=== PATIENT | female | born 1985 | race Caucasian/White ===

== ENCOUNTER 2018-02-11 13:38 | Emergency (ER) | payer MEDICAID ==
[~2018-02-11] VITALS: Ht 165.1 cm; Wt 66.8 kg
[~2018-02-11 13:38] MED LIST: AMOX-291 PO; CIPR500T3 PO; CLIN300C8 PO; HYDR-3237 PO
[2018-02-11 16:44] LABS: BASOPHILS # (AUTO) 0.02 x10^3/uL (0-0.1); BASOPHILS % (AUTO) 0 % (0-1); EOSINOPHILS # (AUTO) 0.08 x10^3/uL (0-0.4); EOSINOPHILS % (AUTO) 1 % (1-7); LYMPHOCYTES # (AUTO) 0.95 x10^3/uL (1-3.4); LYMPHOCYTES % (AUTO) 13 % (22-44); MD NO; MEAN CORPUSCULAR HEMOGLOBIN 30.7 pg (27.0-34.8); MEAN CORPUSCULAR HGB CONC 33.9 g/dL (32.4-35.8); MEAN CORPUSCULAR VOLUME 90.6 fL (80-100); MEAN PLATELET VOLUME 9.9 fL (7.4-10.4); MONOCYTES # (AUTO) 0.92 x10^3/uL (0.2-0.8); MONOCYTES % (AUTO) 13 % (2-9); NEUTROPHILS % (AUTO) 73 % (42-75); PLATELET COUNT 182 x10^3/uL (130-400); RED BLOOD COUNT 3.19 x10^6/uL (3.82-5.3); RED CELL DISTRIBUTION WIDTH 13.4 % (9.6-15.2)
[2018-02-11 16:52] LABS: ALBUMIN 2.6 g/dL (3.4-5.0); ANION GAP 7 mmol/L (5-15); CALCIUM 8.3 mg/dL (8.5-10.1); CHLORIDE 107 mmol/L (98-107); CREATININE 0.42 mg/dL (0.55-1.02)
[2018-02-11 17:29] VITALS: BP 91/43
== END 2018-02-11 17:30 | disposition home or self-care (01) ==
LOC: ED 14:30
DX: J00 Acute nasopharyngitis [common cold] (principal)
CPT/HCPCS: 36415; 71046; 80048; 82040; 85025; 93005; 99285

== ENCOUNTER 2018-02-11 14:08 | Outpatient (CLI) | payer MEDICAID ==
[~2018-02-11] VITALS: Ht 165.1 cm; Wt 66.8 kg
[2018-02-11 14:41] VITALS: BP 118/64
== END 2018-02-11 15:10 | disposition home or self-care (01) ==
LOC: LDOP 14:08
PROVIDERS: ATTEND Obstetrics & Gynecology
DX: Z02.9 Encounter for administrative examinations, unspecified (principal)

== ENCOUNTER 2018-03-05 17:31 | Emergency (ER) | payer MEDICAID ==
[~2018-03-05] VITALS: Ht 152.4 cm; Wt 67.7 kg
[2018-03-05] MEDS ORDERED: ONDA4TAB7 PO (18:03)
[2018-03-05 18:43] LABS: BASOPHILS # (AUTO) 0.01 x10^3/uL (0-0.1); BASOPHILS % (AUTO) 0 % (0-1); EOSINOPHILS # (AUTO) 0.02 x10^3/uL (0-0.4); EOSINOPHILS % (AUTO) 0 % (1-7); LYMPHOCYTES # (AUTO) 1.28 x10^3/uL (1-3.4); LYMPHOCYTES % (AUTO) 13 % (22-44); MD NO; MEAN CORPUSCULAR HGB CONC 33.9 g/dL (32.4-35.8); MEAN CORPUSCULAR VOLUME 91.4 fL (80-100); MEAN PLATELET VOLUME 10.5 fL (7.4-10.4); MONOCYTES # (AUTO) 0.66 x10^3/uL (0.2-0.8); MONOCYTES % (AUTO) 7 % (2-9); NEUTROPHILS # (AUTO) 8.25 x10^3/uL (1.8-6.8); NEUTROPHILS % (AUTO) 81 % (42-75); PLATELET COUNT 217 x10^3/uL (130-400); RED BLOOD COUNT 3.31 x10^6/uL (3.82-5.3); RED CELL DISTRIBUTION WIDTH 14.2 % (9.6-15.2)
[2018-03-05 18:53] LABS: ALANINE AMINOTRANSFERASE 15 U/L (12-78); ALBUMIN 2.7 g/dL (3.4-5.0); ANION GAP 9 mmol/L (5-15); CALCIUM 8.5 mg/dL (8.5-10.1); CHLORIDE 106 mmol/L (98-107); CREATININE 0.49 mg/dL (0.55-1.02)
[2018-03-05 18:55] LABS: ALKALINE PHOSPHATASE 94 U/L (45-117); BILIRUBIN,TOTAL 0.3 mg/dL (0.2-1.0); TOTAL PROTEIN 6.8 g/dL (6.4-8.2)
[2018-03-05 19:50] LABS: MICROSCOPIC NOT IND
[2018-03-05 19:57] LABS: CULTURE INDICATED? NO
[2018-03-05 20:19] VITALS: BP 100/54
[2018-03-05] MEDS ORDERED: OMNIPAQUE 350 MG/ML, 100ML BOTTLE ONE (23:38)
== END 2018-03-05 21:54 | disposition home or self-care (01) ==
LOC: ED 19:01
DX: O00.01 Abdominal pregnancy with intrauterine pregnancy (principal); R07.89 Other chest pain; Z3A.28 28 weeks gestation of pregnancy
CPT/HCPCS: 36415; 71045; 71275; 76700; 80053; 81003; 83690; 85025; 85379; 93005; 99285; Q9967

== ENCOUNTER 2018-04-24 13:07 | Observation (INO) | payer MEDICAID ==
[~2018-04-24] VITALS: Ht 160 cm; Wt 68.5 kg
[~2018-04-24 13:07] MED LIST changes: +ONDA4TAB7 PO
[2018-04-24 13:42] VITALS: BP 105/56
[2018-04-24 13:42] LABS: MICROSCOPIC NOT IND
== END 2018-04-24 16:00 | disposition home or self-care (01) ==
LOC: LDOP 13:07 → LDIP 14:24
PROVIDERS: ADMIT Obstetrics & Gynecology; ATTEND Obstetrics & Gynecology
DX: O26.873 Cervical shortening, third trimester (principal); Z3A.35 35 weeks gestation of pregnancy
CPT/HCPCS: 59025; 81003; 87081; 87086; G0378

== ENCOUNTER 2018-05-13 08:02 | Emergency (ER) | payer MEDICAID ==
[~2018-05-13] VITALS: Ht 157.5 cm; Wt 68.7 kg
[~2018-05-13 08:02] MED LIST changes: +DOCU-131 PO; +FERR325T5 PO; +IBUP-1222 PO; +METO10TA82 PO; +OXYC-302 PO
[2018-05-13] MEDS ORDERED: SODIUM CHLORIDE 0.9% 1,000 ML IV ONE (08:32)
[2018-05-13] MEDS ORDERED: KETOROLAC 30 MG/1 ML ONE (08:54)
[2018-05-13] MEDS ORDERED: METOCLOPRAMIDE 5 MG/ML, 2ML ONE (08:54)
[2018-05-13] MEDS ORDERED: ACETAMINOPHEN 500 MG TABLET ONE (08:54)
[2018-05-13] MEDS ORDERED: SODIUM CHLORIDE 0.9% 1,000ML IVBOLUS ONE (09:00)
[2018-05-13] MEDS ORDERED: KETOROLAC 30 MG/1 ML IVPush ONE (09:00)
[2018-05-13] MEDS ORDERED: ACETAMINOPHEN 500 MG TABLET PO ONE (09:00)
[2018-05-13] MEDS ORDERED: DIPHENHYDRAMINE 50 MG/ML, 1ML IVPush ONE (09:00)
[2018-05-13] MEDS ORDERED: METOCLOPRAMIDE 5 MG/ML, 2ML IVPush ONE (09:00)
[2018-05-13 09:11] LABS: MICROSCOPIC AUTO
[2018-05-13 09:12] LABS: CULTURE INDICATED? YES
[2018-05-13] MEDS ORDERED: CEFTRIAXONE 1,000 MG in SODIUM CHLORIDE 0.9% 50 ML IV ONE (09:30)
[2018-05-13 09:40] LABS: BASOPHILS # (AUTO) 0.01 x10^3/uL (0-0.1); BASOPHILS % (AUTO) 0 % (0-1); EOSINOPHILS # (AUTO) 0.01 x10^3/uL (0-0.4); EOSINOPHILS % (AUTO) 0 % (1-7); LYMPHOCYTES # (AUTO) 0.51 x10^3/uL (1-3.4); LYMPHOCYTES % (AUTO) 8 % (22-44); MD NO; MEAN CORPUSCULAR HEMOGLOBIN 30.1 pg (27.0-34.8); MEAN CORPUSCULAR HGB CONC 33.7 g/dL (32.4-35.8); MEAN CORPUSCULAR VOLUME 89.3 fL (80-100); MEAN PLATELET VOLUME 8.7 fL (7.4-10.4); MONOCYTES # (AUTO) 0.68 x10^3/uL (0.2-0.8); MONOCYTES % (AUTO) 10 % (2-9); NEUTROPHILS # (AUTO) 5.31 x10^3/uL (1.8-6.8); NEUTROPHILS % (AUTO) 81 % (42-75); PLATELET COUNT 210 x10^3/uL (130-400); RED BLOOD COUNT 2.64 x10^6/uL (3.82-5.3); RED CELL DISTRIBUTION WIDTH 18.3 % (9.6-15.2)
[2018-05-13 09:41] LABS: ALANINE AMINOTRANSFERASE 32 U/L (12-78); ALBUMIN 2.4 g/dL (3.4-5.0); ANION GAP 12 mmol/L (5-15); CALCIUM 8.3 mg/dL (8.5-10.1); CHLORIDE 107 mmol/L (98-107)
[2018-05-13] MEDS ORDERED: CEFTRIAXONE PMX 1GM/50ML 50 ML ONE (09:41)
[2018-05-13 09:44] LABS: ALKALINE PHOSPHATASE 107 U/L (45-117); BILIRUBIN,TOTAL 0.5 mg/dL (0.2-1.0); CREATININE 0.53 mg/dL (0.55-1.02); TOTAL PROTEIN 6.1 g/dL (6.4-8.2)
[2018-05-13 09:51] VITALS: BP 116/75
== END 2018-05-13 10:44 | disposition home or self-care (01) ==
LOC: ED 09:47
DX: R51 Headache (principal); N30.00 Acute cystitis without hematuria; E87.6 Hypokalemia; R05 Cough
CPT/HCPCS: 36415; 71046; 80053; 81001; 83605; 83690; 85025; 87040; 87077; 87086; 87186; 93005; 96365; 96375; 99285; J0696; J1885; J2765; J7030

== ENCOUNTER 2019-08-06 22:16 | Emergency (ER) | payer MEDICAID, OTHER ==
[~2019-08-06] VITALS: Ht 160 cm; Wt 61.0 kg
--- NOTE | 2019-08-06 22:35 | NUR ---
Patient states she had a labrum tear surgery about 3 weeks ago. She has been doing PT. Yesterday morning she woke up with fever, chills, and RLQ abd pain. Patient states her abd is distended. Patient is currently nauseous and had a fever of [address] which she took Tylenol for. Patient appears uncomfortable and guards the right side.
[2019-08-06] MEDS ORDERED: ONDANSETRON 2MG/ML, 2ML ONE (22:47)
[2019-08-06] MEDS ORDERED: MORPHINE SULFATE 4 MG/ML, 1ML ONE (22:47)
[2019-08-06] MEDS ORDERED: MORPHINE SULFATE 4 MG/ML, 1ML IVPush PRN (23:00)
[2019-08-06] MEDS ORDERED: SODIUM CHLORIDE FLUSH 10ML SYR IVF ONE (23:00)
[2019-08-06] MEDS ORDERED: ONDANSETRON 2MG/ML, 2ML IVPush ONE (23:00)
[2019-08-06 23:15] LABS: BASOPHILS # (AUTO) 0.02 x10^3/uL (0-0.1); BASOPHILS % (AUTO) 0 % (0-1); EOSINOPHILS # (AUTO) 0.02 x10^3/uL (0-0.4); EOSINOPHILS % (AUTO) 1 % (1-7); LYMPHOCYTES # (AUTO) 1.18 x10^3/uL (1-3.4); LYMPHOCYTES % (AUTO) 23 % (22-44); MD NO; MEAN CORPUSCULAR HEMOGLOBIN 30.5 pg (27.0-34.8); MEAN CORPUSCULAR HGB CONC 33.4 g/dL (32.4-35.8); MEAN CORPUSCULAR VOLUME 91.4 fL (80-100); MEAN PLATELET VOLUME 10.2 fL (7.4-10.4); MONOCYTES % (AUTO) 9 % (2-9); NEUTROPHILS # (AUTO) 3.53 x10^3/uL (1.8-6.8); NEUTROPHILS % (AUTO) 67 % (42-75); PLATELET COUNT 185 x10^3/uL (130-400); RED BLOOD COUNT 4.09 x10^6/uL (3.82-5.3); RED CELL DISTRIBUTION WIDTH 13.3 % (9.6-15.2)
[2019-08-06 23:29] LABS: ALBUMIN 3.2 g/dL (3.4-5.0); ANION GAP 8 mmol/L (5-15); CALCIUM 8.8 mg/dL (8.5-10.1); CHLORIDE 103 mmol/L (98-107); CREATININE 0.67 mg/dL (0.55-1.02)
[2019-08-06 23:34] LABS: ALANINE AMINOTRANSFERASE 69 U/L (12-78); ALKALINE PHOSPHATASE 141 U/L (45-117); BILIRUBIN,TOTAL 0.7 mg/dL (0.2-1.0); TOTAL PROTEIN 7.3 g/dL (6.4-8.2)
[2019-08-06] MEDS ORDERED: POTASSIUM CHLORIDE 20 MEQ TAB.ER.PRT ONE (23:54)
[2019-08-07] MEDS ORDERED: MAGNESIUM SULFATE 1 GM in SODIUM CHLORIDE 0.9% 50 ML IV ONE
[2019-08-07] MEDS ORDERED: POTASSIUM CHLORIDE 10% 40 MEQ/30 ML UDC PO ONE ×2
--- NOTE | 2019-08-07 00:12 | NUR ---
Requested Na and K from pharmacy.
--- NOTE | 2019-08-07 00:19 | NUR ---
FLOAT RN: PT RESTING IN ROOM. NO ACUTE DISTRESS NOTED. CALL LIGHT IN PLACE. WILL CONTINUE TO MONITOR WHILE PRIMARY RN IS ON BREAK.
--- NOTE | 2019-08-07 00:57 | NUR ---
REPORT GIVEN TO PATRICIA PÉREZ
[2019-08-07 01:26] VITALS: BP 104/59
[2019-08-07] MEDS ORDERED: OMNIPAQUE 350 MG/ML, 100ML BOTTLE ONE (22:40)
== END 2019-08-07 01:57 | disposition home or self-care (01) ==
LOC: ED 23:44
DX: K52.9 Noninfective gastroenteritis and colitis, unspecified (principal)
CPT/HCPCS: 36415; 74177; 80053; 83690; 84703; 85025; 96365; 96375; 99284; J2270; J2405; J3475; Q9967